=== PATIENT | male | born 1955 | race American Indian/Alaskan Native ===

== ENCOUNTER 2019-06-29 11:19 | Emergency (ER) | payer MEDICAID ==
[2019-06-29] MEDS ORDERED: ATIVAN IM STA (11:46)
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
[2019-06-29 12:14] LABS: Hematocrit 36.8 % (35.5-45.6); Hemoglobin 12.7 gm/dl (11.8-15.2); Mean Corpuscular HGB Conc 34 % (32-34); Mean Corpuscular Volume 98 fl (84-94); Platelet Count 262 K/mm3 (140-440); Red Blood Count 3.78 M/mm3 (3.65-5.03); Red Cell Distribution Width 12.8 % (13.2-15.2)
[2019-06-29 12:40] LABS: BUN/Creatinine Ratio 16; Blood Urea Nitrogen 14 mg/dL (9-20); Hemolysis Index 3
[2019-06-29] MEDS ORDERED: HALDOL IM PRN (13:33)
[2019-06-29] MEDS ORDERED: GEODON IM ONE (14:22)
[2019-06-29] MEDS ORDERED: WATER FOR INJ Sterile (PF) 10 ML ONE (14:28)
--- NOTE | 2019-06-29 16:24 | Cat Scan Report ---
CT HEAD WITHOUT CONTRAST INDICATION : Hypertension, head trauma, altered mental status. TECHNIQUE: Axial imaging performed from the skull apex through the skull base without the use of con trast. All CT scans at this location are performed using CT dose reduction for ALARA by means of aut omated exposure control. COMPARISON: None FINDINGS: Parenchyma: No acute intracranial hemorrhage or parenchymal abnormality. Ventricles: Ventricles are normal in size and appear symmetric. Bones: No acute osseous abnormality. Sinuses: Sinuses and mastoid air cells are clear. Soft tissues: Mild right frontal soft tissue swelling is identified. IMPRESSION: Right frontal soft tissue swelling. No acute intracranial abnormality. Signer Name: Ayden Talavera Jr, MD Signed: 06/29/2019 4:20 PM Workstation Name: [id number]
[2019-06-29 19:02] VITALS: BP 148/91
== END 2019-06-29 19:29 ==
LOC: ED 11:19
DX: I10 Essential (primary) hypertension (principal); E11.9 Type 2 diabetes mellitus without complications
CPT/HCPCS: 36415; 70450; 80048; 82550; 83735; 85027; 96372; 99285; J1630; J2060; J3486; 80320; G0480